=== PATIENT | female | born 1975 | race Caucasian/White ===

== ENCOUNTER 2016-08-24 11:30 | Emergency (ER) | payer OTHER ==
--- NOTE | 2016-08-24 11:42 | PDOC ---
History of Present Illness - General Chief Complaint: Respiratory Stated Complaint: COUGH NASAL CONGESTION AUDIBLE WHEEZE Time Seen by Provider: 08/24/16 11:42 - History of Present Illness Initial Comments: 08/24/16 16:18 Complaint: Persistent cough History of present illness: Patient complains of an intractable cough for approximately 1 week, has been on doxycycline without improvement. She denies fever/chills, shortness of breath, chest pain, abdominal pain, nausea, vomiting , or diarrhea Review of systems: As above. In addition remainder systems negative Past medical history: Chronic bronchitis/COPD. Physical exam: Afebrile, vital signs normal ENT clear Lungs clear with full breath sounds bilaterally CV regular without murmur rub or gallop Abdomen benign Impression: Bronchitis, chronic with acute exacerbation Plan: Chest x-ray, appropriate antibiotic therapy Past History - Past Medical History Allergies/Adverse Reactions: Allergies Allergy/AdvReac Type Severity Reaction Status Date / Time Penicillins Allergy Intermediate Itching Verified 08/24/16 11:57 prednisolone Allergy Intermediate Itching Verified 08/24/16 12:00 oxycodone HCl [From Percocet] AdvReac Nausea Verified 08/24/16 11:57 Home Medications: Ambulatory Orders Fluoxetine HCl [Prozac -] 60 mg PO DAILY 03/20/14 Azithromycin [Zithromax 250mg Tablets -] 250 mg PO UTDICT #6 tab 08/24/16 Guaifenesin AC [Robitussin-AC] 1 - 2 tsp PO TID PRN #120 ml MDD 8 08/24/16 Anemia: No Asthma: No Cancer: No Cardiac Disorders: No CVA: No COPD: No CHF: No Dementia: No Diabetes: No GI Disorders: No Disorders: No HTN: No Hypercholesterolemia: No Liver Disease: No Psychiatric Problems: Yes (depression) Seizures: No Thyroid Disease: No - Surgical History Abdominal Surgery: No Appendectomy: Yes Cardiac Surgery: Yes (OPEN HEART 1987) Cholecystectomy: No Lung Surgery: No Neurologic Surgery: No Orthopedic Surgery: No - Reproductive History Therapeutic (s) & number: No - Immunization History Td Vaccination: No - Psycho/Social/Smoking Cessation Hx Anxiety: Yes Suicidal Ideation: No Smoking Status: No Smoking History: Former smoker Years of Tobacco Use: 10 Have you smoked in the past 12 months: Yes Number of Cigarettes Smoked Daily: 6 If you are a former smoker, when did you quit?: 2011 'Breaking Loose' booklet given: 06/24/13 Hx Alcohol Use: No Drug/Substance Use Hx: No Substance Use Type: None Hx Substance Use Treatment: No Medical Decision Making - Medical Decision Making 08/24/16 13:08 Respiratory rate 16 and unlabored, O2 sat 99% on room air, lungs clear to P&A Severe intractable cough. X-ray at urgent care center several days ago reportedly showed pneumonia. Patient has a history of COPD, although has not seen a grocery associate as recommended. Family members with strep, strep screen done at urgent care several days ago as well was negative. Flu was also negative. 08/24/16 16:17 Repeat x-ray is clear. There is no sign of pneumonia or other consolidation, effusion, or pneumothorax. Antibiotic changed to azithromycin, codeine containing cough medicine prescribed at the request of the patient. Her described "ALLERGY" to codeine consist only of nausea. She is fully ambulatory and in no distress upon discharge to follow-up with grocery associate as directed *DC/Admit/Observation/Transfer Diagnosis at time of Disposition: Bronchitis - Discharge Dispostion Disposition: HOME Condition at time of disposition: Stable Admit: No - Prescriptions Prescriptions: Guaifenesin AC [Robitussin-AC] 1 - 2 tsp PO TID PRN #120 ml MDD 8 PRN Reason: Cough Azithromycin [Zithromax 250mg Tablets -] 250 mg PO UTDICT #6 tab - Referrals Referrals: Prosper Vazquez MD [Staff Physician] - 3 days - Patient Instructions Printed Discharge Instructions: DI for Acute Bronchitis - Post Discharge Activity Work/School Note: Back to Work
[2016-08-24 11:56] VITALS: BP 109/66; PULSE 61; TEMP 98.4; BMI 32.0
== END 2016-08-24 14:13 | disposition home or self-care (01) ==
LOC: FER 11:30
DX: J40 Bronchitis, not specified as acute or chronic (principal); Z87.891 Personal history of nicotine dependence; F32.9 Major depressive disorder, single episode, unspecified
CPT/HCPCS: 71020-TC; 84703; 99282-25

== ENCOUNTER 2023-09-08 16:51 | Emergency (ER) | payer OTHER ==
[2023-09-08] MEDS: SODIUM CHLORIDE 1,000 ML IV STA (17:48)
[2023-09-08 17:57] VITALS: BP 122/77; PULSE 59; RESP 18; TEMP 98; BMI 28.3
[2023-09-08 18:00] LABS: HEMATOCRIT 41.2 % (32.4-45.2); HEMOGLOBIN 13.3 G/dL (10.7-15.3); MCH 29.4 pg (25.7-33.7); MCHC 32.4 g/dl (32.0-36.0); MEAN PLT VOLUME 8.7 fl (7.5-11.1); PLATELET COUNT 234.2 10^3/uL (134-434); RBC 4.53 10^6/uL (3.60-5.2); WHITE BLOOD COUNT 5.4 10^3/uL (4.0-10.8)
[2023-09-08 18:04] LABS: PLATELET ESTIMATE ADEQUATE
[2023-09-08 18:19] LABS: ALBUMIN 4.4 g/dl (3.4-5.0); ALK PHOS 45 U/L (45-117); ANION GAP 8 mmol/L (4-13); BILIRUBIN,TOTAL 0.6 mg/dl (0.2-1); CALCIUM 9.6 mg/dl (8.5-10.1); CHLORIDE 100 mmol/L (98-107); CO2 28 mmol/L (21-32); CREATININE 0.8 mg/dl (0.6-1.3); GLUCOSE,RANDOM 80 mg/dl (74-106); MAGNESIUM 2.1 mg/dL (1.8-2.4); SGOT/AST 16 U/L (15-37); SGPT/ALT 12 U/L (7-52); SODIUM 136 mmol/L (136-145); TOT PROT 7.1 g/dl (6.4-8.2)
== END 2023-09-08 19:16 | disposition home or self-care (01) ==
LOC: FER 16:51
PROC: 3E0337Z Introduction of Electrolytic and Water Balance Substance into Peripheral Vein, Percutaneous Approach (ICD-10-PCS; principal; 2023-09-08)
DX: R55 Syncope and collapse (principal); R42 Dizziness and giddiness; E86.0 Dehydration
CPT/HCPCS: 36415; 80053; 81003; 81015; 83735; 84100; 84484; 85027; 87086; 93005; 99284-25